=== PATIENT | male | born 1970 | race Caucasian/White ===

== ENCOUNTER 2017-10-01 04:32 | Emergency (ER) | payer OTHER ==
[~2017-10-01] VITALS: Ht 175.3 cm; Wt 72.6 kg
[2017-10-01 04:46] VITALS: BP 158/83
== END 2017-10-01 06:51 | disposition left against medical advice (07) ==
LOC: ER 04:33
DX: Z53.21 Procedure and treatment not carried out due to patient leaving prior to being seen by health care provider (principal)
CPT/HCPCS: A4606; Z7610